=== PATIENT | male | born 1965 | race Caucasian/White ===

== ENCOUNTER 2022-09-16 13:32 | Observation (INO) | payer BC ==
[2022-09-16 14:21] LABS: #Eosinphils 0.1 thou/uL (0.0-0.7); #Lymphocytes 2.4 thou/uL (1.20-3.40); #Monocytes 0.4 thou/uL (0.11-0.59); #Neutrophils 5.6 thou/uL (1.40-6.50); %Basophils 0.4 % (0.0-1.0); %Eosinophils 1.7 % (0.0-10.0); %Lymphocytes 27.9 % (21.0-51.0); %Monocytes 4.4 % (0.0-10.0); %Neutrophils 65.7 % (42.0-75.0); Hemoglobin 13.4 g/dL (14.0-18.0); Mean Corpuscular HGB CONC 33.3 g/dL (32.0-36.0); Mean Corpuscular Hemoglobin 30.8 pg (27.0-31.0); Mean Corpuscular Volume 92.4 fl (78.0-98.0); Platelet Count 371 10x3/uL (130-400); RBC Distribution Width 12.6 % (11.5-14.5); Red Blood Cell (RBC) Count 4.36 mill/uL (4.70-6.10); White Blood Cell (WBC) Count 8.6 10x3/uL (4.8-10.8)
[2022-09-16 14:42] LABS: ALT (SGPT) 40 U/L (8-55); AST (SGOT) 24 U/L (5-34); Albumin 4.2 g/dL (3.5-5.0); Alkaline Phosphatase 56 U/L (40-110); Anion Gap 12 mmol/L (10-20); BUN (Urea Nitrogen) 49 mg/dL (8.4-25.7); Bilirubin, Total 0.6 mg/dL (0.2-1.2); Calc. Creatinine Clearance 0 mL/min (70-130); Calcium 9.4 mg/dL (7.8-10.44); Carbon Dioxide 24 mmol/L (22-29); Chloride 107 mmol/L (98-107); Estimated GFR 100; Globulin 2.2 g/dL (2.4-3.5); Glucose 152 mg/dL (70-105); Lipase 15 U/L (8-78); Potassium 4.3 mmol/L (3.5-5.1); Protein, Total 6.4 g/dL (6.0-8.3); Sodium 139 mmol/L (136-145)
[2022-09-16] MEDS ORDERED: Ondansetron PF 4 MG/2 ML Vial IVP PRN (19:15)
[2022-09-16] MEDS ORDERED: Acetaminophen 325 MG TAB PO PRN (19:15)
[2022-09-16] MEDS ORDERED: Nitroglycerin 0.4 MG TAB (25 Tab Bottle) SL PRN (19:15)
[2022-09-16] MEDS ORDERED: Ondansetron ODT 4 MG TAB PO PRN (19:15)
[2022-09-16] MEDS ORDERED: Pantoprazole 40 MG VIAL IVP SCH (19:15)
[2022-09-16 20:15] LABS: Troponin I 0.022 ng/mL (< 0.028)
[2022-09-16] MEDS ORDERED: Melatonin 3 MG TAB PO PRN (21:53)
[2022-09-16 22:33] VITALS: BMI 30.9
[2022-09-16 23:32] LABS: Troponin I 0.012 ng/mL (< 0.028)
[2022-09-17 05:06] LABS: #Eosinphils 0.3 thou/uL (0.0-0.7); #Lymphocytes 2.1 thou/uL (1.20-3.40); #Monocytes 0.5 thou/uL (0.11-0.59); #Neutrophils 4.7 thou/uL (1.40-6.50); %Basophils 0.3 % (0.0-1.0); %Eosinophils 3.4 % (0.0-10.0); %Monocytes 6.9 % (0.0-10.0); %Neutrophils 61.4 % (42.0-75.0); Hemoglobin 12.2 g/dL (14.0-18.0); Mean Corpuscular HGB CONC 34.9 g/dL (32.0-36.0); Mean Corpuscular Hemoglobin 32.3 pg (27.0-31.0); Mean Corpuscular Volume 92.4 fl (78.0-98.0); Mean Platelet Volume 7.6 fL (7.4-10.4); Platelet Count 293 10x3/uL (130-400); RBC Distribution Width 12.8 % (11.5-14.5); Red Blood Cell (RBC) Count 3.79 mill/uL (4.70-6.10); White Blood Cell (WBC) Count 7.6 10x3/uL (4.8-10.8)
[2022-09-17 05:30] LABS: Anion Gap 13 mmol/L (10-20); BUN (Urea Nitrogen) 29 mg/dL (8.4-25.7); Calc. Creatinine Clearance 145 mL/min (70-130); Carbon Dioxide 20 mmol/L (22-29); Cardiac Risk 5.5 (Less than 4.5); Chloride 108 mmol/L (98-107); Cholesterol 175 mg/dl (< 200 Desired); Estimated GFR 102; Glucose 99 mg/dL (70-105); HDL Cholesterol 32 mg/dL (>60 Neg Risk); LDL Cholesterol, Calculated 101 mg/dL; Sodium 137 mmol/L (136-145); Triglycerides 211 mg/dL (Less than 150)
[2022-09-17 08:30] VITALS: TEMP 98.6
[2022-09-17] MEDS ORDERED: Aspirin Chewable 81 MG TAB PO SCH (09:00)
[2022-09-17] MEDS ORDERED: ADENOSINE 60 MG/20 ML VIAL ONE (12:00)
[2022-09-17 12:12] VITALS: BP 124/71
[2022-09-17] MEDS ORDERED: Atorvastatin Calcium 40 MG TAB PO SCH (21:00)
== END 2022-09-17 13:25 | disposition home or self-care (01) ==
LOC: ERS 13:32 → ERHOLD 18:36 → 2SW 21:10
PROVIDERS: ADMIT Internal Medicine; ATTEND Internal Medicine
DX: R07.89 Other chest pain (principal); E78.5 Hyperlipidemia, unspecified; Z79.899 Other long term (current) drug therapy; Z91.048 Other nonmedicinal substance allergy status; Z20.822 Contact with and (suspected) exposure to COVID-19
CPT/HCPCS: 36415; 71045; 78452; 80048; 80053; 80061; 83690; 83880; 84484; 85025; 85379; 93005; 93017; 96374; A9500; C9113; G0378; J0153; U0003; U0005